=== PATIENT | female | born 1985 | race African-American/Black ===

== ENCOUNTER 2019-01-10 11:40 | Outpatient (CLI) | payer MEDICAID ==
[~2019-01-10] VITALS: Ht 170.2 cm; Wt 89.8 kg
[2019-01-10 12:21] VITALS: BP 124/77; PULSE 96; Ht 170.2 cm; Wt 89.8 kg
[2019-01-10] MEDS ORDERED: PNV11TAB PO (12:23)
--- NOTE | 2019-01-10 15:22 | TRIAGE ---
OB Triage Datetime Report Generated by CPN: 01/10/2019 15:22 Datetime: 01/10/2019 14:12 Stage of : OB Triage Datetime: 01/10/2019 14:10 Labor Evaluation Frequency: 0 Monitor Mode: External Pattern: Normal: <= 5 Contractions in 10 Minutes Resting Tone [place]: Relaxed Heart Rate FHR Baseline Rate: 135 Monitor Mode: External US Variability: Moderate 6-25 bpm Accelerations: 10X10 Decelerations: None Category: Category I Pain Assessment Pain Scale: 3 Pain Presence: Constant Pain Type: Pressure Pain Location: Perineum Pain Goal: 3 Pain Relief Measures: Comfort Measures Datetime: 01/10/2019 12:53 Labor Evaluation Frequency: 0 Monitor Mode: External Pattern: Normal: <= 5 Contractions in 10 Minutes Resting Tone [place]: Relaxed Heart Rate FHR Baseline Rate: 135 Monitor Mode: External US Variability: Moderate 6-25 bpm Accelerations: 10X10 Decelerations: None Category: Category I Pain Assessment Pain Scale: 5 Pain Presence: Constant Pain Type: Pressure Pain Location: Perineum Pain Goal: 3 Pain Relief Measures: Comfort Measures Pain Assessment Comments: ABDOMINAL BINDER GIVEN, STATES HAS HELPED Datetime: 01/10/2019 12:32 Stage of : OB Triage Datetime: 01/10/2019 12:16 Stage of : OB Triage Assessment Type: Triage Maternal Assessment Level of Consciousness: Fully Conscious DTR's/Clonus: DTRs 2+; No Clonus Headache: Denies Blurred Vision: No Respiratory Effort: Unlabored; Regular Rhythm; Equal Expansion Breath Sounds, Left: Clear and Equal Breath Sounds, Right: Clear and Equal Nausea/Vomiting: Denies RUQ Epigastric Pain: Denies Facial Edema: None Temperature Route: Axillary Fall Risk Assessment History of Falling: (0) No Secondary Diagnosis: (0) No Ambulatory Aid: (0) Bedrest/Nurse Assist IV Therapy: (0) No Gait: (0) Normal/Bedrest/Immobile Mental Status: (0) Oriented to Own Ability Fall Score: 0 Fall Risk Score Definition: No Risk: No action required Labor Evaluation Frequency: 0 Monitor Mode: External Pattern: Normal: <= 5 Contractions in 10 Minutes Resting Tone [place]: Relaxed Heart Rate FHR Baseline Rate: 135 Monitor Mode: External US Variability: Moderate 6-25 bpm Accelerations: 10X10 Decelerations: None Pain Assessment Pain Scale: 10 Pain Presence: Constant (Annotations: CONSTANT WHEN WALKING/STANDING) Pain Type: Pressure Pain Location: Back Pain Goal: 3 Pain Relief Measures: Comfort Measures Datetime: 01/10/2019 12:15 EGA: 27.5 Datetime: 01/10/2019 12:14 Time of Arrival: 01/10/2019 11:30 Arrived By: Ambulatory Arrived From: Home Chief Complaint: C/O VAGINAL PRESSURE THIS MORNING, DENIES LEAKING, BLEEDING OR UC'S. FEELS SLIGHTL Y NAUSEAUS Movement: Present Contractions: Denies/Absent Rupture of Membranes: Denies Vaginal Bleeding: None Vaginal Discharge: Denies Recent Sexual Intercouse: Denies Abdominal Trauma: Not Applicable Time Provider Notified: 01/10/2019 12:33 Provider Notified: ashutosh Initial Plan: MONITOR, u/a c_s, bpp
--- NOTE | 2019-01-10 16:15 | PN ---
Triage Information Date/Time 01/10/1911/30/1610 Reason for visit: vaginal pressure on walking and standing Weeks of Gestation 27w5d /Para A1 Diabetes: none Hypertention: none Objective Vital Signs Date Temp Pulse Resp B/P (MAP) Pulse Ox O2 O2 Flow FiO2 Time Delivery Rate 01/10/19 98.6 96 124/77 12:21 (93) Heart Rate: 130's Heart Rate Comments adequate for GA Contractions: None Results/Medications Results 24 hrs Laboratory Tests Test 01/10/19 12:20 Urine Color RED Urine Clarity CLOUDY A Urine pH 7.0 Urine Specific [place] 1.013 Urine Ketones NEGATIVE Urine Nitrite NEGATIVE Urine Bilirubin NEGATIVE Urine Urobilinogen NEGATIVE Urine Leukocyte Esterase NEGATIVE Urine Microscopic RBC 0 Urine Microscopic WBC 2 Urine Squamous Epithelial Cells FEW Urine Amorphous Crystals FEW A Urine Bacteria FEW A Urine Hemoglobin NEGATIVE Urine Glucose NEGATIVE Urine Total Protein NEGATIVE Imaging Results BPP8/8 LOLA 11,7 Disposition: Discharge Assessment/Plan A IUP 27w5d ligament pain P discharge home with instructions not to lft any heavy object or sudden movement rest CHENCHO ARVIZU MD Jan 10, 2019 16:15
== END 2019-01-10 14:20 | disposition home or self-care (01) ==
LOC: OBT 11:40 → L-D 11:42 → OBT 14:20
PROVIDERS: ATTEND Obstetrics & Gynecology
DX: O26.892 Other specified pregnancy related conditions, second trimester (principal); R10.2 Pelvic and perineal pain; M54.9 Dorsalgia, unspecified; Z3A.27 27 weeks gestation of pregnancy
CPT/HCPCS: 76818; 81001; 87086; Z7500; G0463

== ENCOUNTER 2019-02-24 11:42 | Inpatient (IN) | payer MEDICAID ==
[~2019-02-24] VITALS: Ht 170.2 cm; Wt 91.4 kg
[~2019-02-24 11:42] MED LIST: PNV11TAB PO
[2019-02-24 11:49] VITALS: Ht 170.2 cm; Wt 91.4 kg
[2019-02-24] MEDS ORDERED: FER325 PO (11:52)
[2019-02-24 11:57] VITALS: BP 105/68; PULSE 101; RESP 20
[2019-02-24] MEDS ORDERED: ACETAMINOPHEN 325 MG TAB PO ONE (16:30)
--- NOTE | 2019-02-24 17:35 | TRIAGE ---
OB Triage Datetime Report Generated by CPN: 02/24/2019 17:35 Datetime: 02/24/2019 17:21 Comments: Pt to [facility], report Mariella RN Datetime: 02/24/2019 16:22 Comments: Dr. Bobby was informed of pt c/o headache. New order for Tylenol 650 mg Datetime: 02/24/2019 16:21 Comments: Pt c/o headache 4/10 (temporal) will call MD for orders Datetime: 02/24/2019 16:18 Stage of : Labor Temperature Route: Oral Datetime: 02/24/2019 16:12 Comments: [place], juice and water offered to pt Datetime: 02/24/2019 16:00 Labor Evaluation Frequency: X2 Monitor Mode: External Duration (sec)2399: 40-80 Quality: Mild Pattern: Normal: <= 5 Contractions in 10 Minutes Resting Tone [place]: Relaxed Heart Rate FHR Baseline Rate: 130 Monitor Mode: External US FHR Baseline Changes: No Baseline Change Variability: Moderate 6-25 bpm Accelerations: 15X15 Decelerations: None Category: Category I Membrane Status: Intact Datetime: 02/24/2019 15:13 Comments: Lab and u/s at bedside Datetime: 02/24/2019 15:00 Labor Evaluation Frequency: x2 Monitor Mode: External Duration (sec)2399: 60-80 Quality: Mild Pattern: Normal: <= 5 Contractions in 10 Minutes Resting Tone [place]: Relaxed Heart Rate FHR Baseline Rate: 130 Monitor Mode: External US FHR Baseline Changes: No Baseline Change Variability: Moderate 6-25 bpm Accelerations: 15X15 Decelerations: None Category: Category I Datetime: 02/24/2019 14:57 Stage of : OB Triage Datetime: 02/24/2019 14:34 Comments: Dr. Bobby was informed of Dr's Hadadian request to evaluate pt. New order for CBC, Typ e and Screen KB test and placenta u/s Datetime: 02/24/2019 14:00 Labor Evaluation Frequency: X2 Monitor Mode: External Duration (sec)2399: 50-80 Quality: Mild Pattern: Normal: <= 5 Contractions in 10 Minutes Resting Tone [place]: Relaxed Heart Rate FHR Baseline Rate: 135 Monitor Mode: External US FHR Baseline Changes: No Baseline Change Variability: Moderate 6-25 bpm Accelerations: 15X15 Decelerations: None Category: Category I Pain Assessment Pain Scale: 8 Pain Presence: Constant Pain Type: Cramping; Ache Pain Location: Abdomen; Right Hip Pain Goal: 9 Pain Relief Measures: Comfort Measures Datetime: 02/24/2019 13:36 Pain Assessment Pain Scale: 8 Pain Presence: Intermittent Datetime: 02/24/2019 12:54 Comments: u/s at bedside Datetime: 02/24/2019 12:53 Labor Evaluation Frequency: x3 Monitor Mode: External Duration (sec)2399: 40-90 Quality: Mild Pattern: Normal: <= 5 Contractions in 10 Minutes Resting Tone [place]: Relaxed Heart Rate FHR Baseline Rate: 130 Monitor Mode: External US FHR Baseline Changes: No Baseline Change Variability: Moderate 6-25 bpm Accelerations: 15X15 Decelerations: None Category: Category I Datetime: 02/24/2019 12:46 Vaginal Exam Dilatation (cms): 0.0 Effacement (%): 30 Station: -3 Exam By: LH Datetime: 02/24/2019 12:32 Comments: Dr. Rojas was informed of pt's arrival to unit with c/o cramping since this morning, p t slipped last night and felt on her right hip. Pt stated that baby hasn't being moving as usual. New order for VE, BPP and NST Datetime: 02/24/2019 12:23 Comments: Message left on Dr's Hadadian cell phone regarding pt's arrival to unit and to call me ba ck. Datetime: 02/24/2019 12:20 Labor Evaluation Frequency: 2-13 Monitor Mode: External Duration (sec)2399: 50-120 Quality: Mild Pattern: Normal: <= 5 Contractions in 10 Minutes Resting Tone [place]: Relaxed Heart Rate FHR Baseline Rate: 130 Monitor Mode: External US FHR Baseline Changes: No Baseline Change Variability: Minimal - Undetectable to <=5 bpm Accelerations: 15X15 Decelerations: None Category: Category I Comments: Right tilt Pain Assessment Pain Scale: 8 Pain Presence: Intermittent Pain Type: Cramping Pain Location: Abdomen Pain Goal: 9 Pain Relief Measures: Comfort Measures Datetime: 02/24/2019 12:00 Time of Arrival: 02/18/2019 11:43 EGA: 33.2 Arrived By: Ambulatory Arrived From: Home Chief Complaint: Cramping since 0800. Pt stated that she slipped last night and felt on her right h ip. Decrase movement since fall Movement: Decreased Contractions: Regular Time Contractions Began: 02/24/2019 08:00 Rupture of Membranes: Denies Vaginal Bleeding: Normal Show Vaginal Discharge: Denies Recent Sexual Intercouse: Denies Abdominal Trauma: Fall Patient Complaints: Contractions Initial Plan: NST, BPP, VE, KB, CBC Datetime: 02/24/2019 11:56 Stage of : OB Triage Assessment Type: Triage Maternal Assessment Level of Consciousness: Fully Conscious DTR's/Clonus: DTRs 2+; No Clonus Blurred Vision: No Respiratory Effort: Unlabored; Regular Rhythm; Equal Expansion Breath Sounds, Left: Clear and Equal Breath Sounds, Right: Clear and Equal Nausea/Vomiting: Denies RUQ Epigastric Pain: Denies Lower Extremities Edema: None Upper Extremities Edema: None Facial Edema: None Temperature Route: Oral Fall Risk Assessment History of Falling: (0) No Secondary Diagnosis: (0) No Ambulatory Aid: (0) Bedrest/Nurse Assist IV Therapy: (0) No Gait: (0) Normal/Bedrest/Immobile Mental Status: (0) Oriented to Own Ability Fall Score: 0 Fall Risk Score Definition: No Risk: No action required Datetime: 01/10/2019 12:16 Fall Score: 0 Fall Risk Score Definition: No Risk: No action required Datetime: 01/10/2019 12:15 EGA: 27.5
[2019-02-24] MEDS: LACTATED RINGER'S 1,000 ML IV SCH ×2 (18:06→23:07)
--- NOTE | 2019-02-24 18:35 | HP ---
Date/Time of Note Date/Time of Note DATE: 02/24/19 TIME: 18:32 OB - History Hx of Present Free Text/Dictation @34+wks GA s/p Falling and direct trauma to abdomen : 2 Para: 1 Care: Good Care Ultrasounds: Normal mid trimester US Obstetrical Complications: None Medical Complications: None Past Family/Social History * Past Medical, Surgical, Family and Obstetric Histories reviewed from chart. OB Admission Exam Vital Signs Vital Signs Vital Signs Date Temp Pulse Resp B/P (MAP) Pulse Ox O2 O2 Flow FiO2 Time Delivery Rate 02/24/19 97.9 101 20 105/68 Room Air 11:57 (80) Physical Exam Abdomen: WNL Extremities: Normal Cervical Dilatation: None Effacement: 0% Station: Ballotable Membranes: Intact Heart Rate: 140's Accelerations: Accelerations Present Decelerations: No Decelerations Varibility: Moderate Contractions on Admission: None Last 72 hours Lab Results CBC & BMP 02/24/19 15:16 OB Assessment/Plan Reason for admission: observation Other Assessment: PMH denies PSH Denies Plan: Expectant Management Other plan: 24 hr observation Labs will follow up on the patient MAGDALEAN BARNEY M.D. Feb 24, 2019 18:35
[2019-02-25] MEDS: LACTATED RINGER'S 1,000 ML IV SCH ×2 (06:30→16:39)
[2019-02-25] MEDS ORDERED: FERROUS SULFATE (EC) 325 MG TAB PO SCH (09:00)
[2019-02-25] MEDS ORDERED: PRENATAL VITAMIN PO SCH (09:00)
--- NOTE | 2019-02-25 16:51 | QN ---
Documentation Comment patient is doing fine NSt reassuring [place] No CTXS Pelvic deferred --->Discharge with precautions if BPP is 8/8 Questions answered Precautions discussed Follow up with provider MAGDALENA BARNEY M.D. Feb 25, 2019 16:51
--- NOTE | 2019-02-25 16:52 | DS ---
Date/Time of Note Date/Time of Note DATE: 02/25/19 TIME: 16:51 Discharge Summary Admission/Discharge Info Admit Date/Time Feb 24, 2019 at 17:15 Discharge Date/Time 02/25/2019 Discharge Diagnosis Trauma s/p falling Patient Condition: Good Hospital Course uneventful Home Meds Reported Medications Ferrous Sulfate* (Ferrous Sulfate*) 325 Mg Tabec, 325 MG PO DAILY, TAB 02/24/19 [id number] ( 19) 1 Each Tablet, 1 TAB PO DAILY, TAB 01/10/19 Primary Care Provider Care Physician No Primary Pending Labs Laboratory Tests Test 02/25/19 07:20 Lab Scanned Report [facility] [id number] MAGDALENA BARNEY M.D. Feb 25, 2019 16:52
== END 2019-02-25 19:00 | disposition home or self-care (01) | DRG 833 ==
LOC: L-D 11:42 → OBT 11:42 → L-D 17:15 → PP1 02-25 07:00
PROVIDERS: ADMIT Obstetrics & Gynecology; ATTEND Obstetrics & Gynecology
PROC: 4A1HXCZ Monitoring of Products of Conception, Cardiac Rate, External Approach (ICD-10-PCS; principal; 2019-02-24)
DX: O26.893 Other specified pregnancy related conditions, third trimester (principal); Z3A.34 34 weeks gestation of pregnancy; S39.91XA Unspecified injury of abdomen, initial encounter; W19.XXXA Unspecified fall, initial encounter
CPT/HCPCS: 76815; 76816; 76818; 85025; 85460; 86850; 86900; 86901; G0463; J7120

== ENCOUNTER 2019-03-16 16:11 | Outpatient (CLI) | payer MEDICAID ==
[~2019-03-16] VITALS: Ht 170.2 cm; Wt 96.2 kg
[2019-03-16 16:19] VITALS: Ht 170.2 cm; Wt 96.2 kg
[2019-03-16] MEDS ORDERED: CALC600T5 PO (16:21)
[2019-03-16] MEDS ORDERED: FERR134T PO (16:21)
[2019-03-16] MEDS ORDERED: PREN-93 PO (16:21)
[2019-03-16] MEDS ORDERED: OXYTOCIN 30 UNITS/LR 500 ML IV SCH ×2 (18:30)
[2019-03-16] MEDS ORDERED: BUTORPHANOL 2 MG INJ IV PRN (18:30)
[2019-03-16] MEDS ORDERED: OXYTOCIN 30 UNITS/LR 500 ML IV PRN (18:30)
[2019-03-16] MEDS ORDERED: MISOPROSTOL 200 MCG TAB PR PRN (18:30)
[2019-03-16] MEDS ORDERED: AMPICILLIN 2 GM/NS (PMX) 100 ML IV ONE (18:30)
[2019-03-16] MEDS ORDERED: CARBOPROST 250 MCG INJ IM PRN (18:30)
[2019-03-16] MEDS ORDERED: LIDOCAINE 1% (MPF) 30 ML INJ INJ PRN (18:30)
[2019-03-16] MEDS ORDERED: METHYLERGONOVINE 0.2 MG INJ IM PRN (18:30)
[2019-03-16] MEDS: LACTATED RINGER'S 1,000 ML IV SCH (18:54)
[2019-03-16] MEDS ORDERED: AMPICILLIN 1 GM/NS (PMX) 50 ML IV SCH (21:00)
--- NOTE | 2019-03-16 21:39 | HP ---
Date/Time of Note Date/Time of Note DATE: 03/16/19 TIME: 21:34 OB - History Hx of Present Free Text/Dictation Patient is a 33-year-old 5 para 3 at 37 weeks of gestation with estimated date of delivery April 06, 2018 Patient presents with uterine contractions Reports positive movement, denies any vaginal bleeding or leaking fluid GBS status is positive Estimated Due Date: April 06, 2019 : 5 Para: 3 Care: Good Care Obstetrical Complications: None Medical Complications: None Past Family/Social History * Past Medical, Surgical, Family and Obstetric Histories reviewed from chart. OB Admission Exam Physical Exam HEENT: WNL Heart: Rhythm Normal Lungs: Clear, Equal Abdomen: WNL Extremities: Normal Reflexes: Normal Cervical Dilatation: 3cm Effacement: 50% Station: -3 Membranes: Intact Heart Rate: 140's Accelerations: Accelerations Present Decelerations: No Decelerations Varibility: Moderate Contractions on Admission: >10 Minutes Apart Intensity: Mild Last 72 hours Lab Results CBC & BMP 03/16/19 18:30 Liver Function Test 03/16/19 18:30 Alanine Aminotransferase (ALT/SGPT) 27 Albumin 3.8 Alkaline Phosphatase 185 H Aspartate Amino Transf (AST/SGOT) 27 Direct Bilirubin 0.00 Total Protein 7.5 PROCEDURE: US Obstetrical, limited CLINICAL INDICATION: Labor, weakness TECHNIQUE: Multiple real-time images were acquired of the patient's maternal abdomen utilizing a curved array transducer. COMPARISON: 03/05/2019 FINDINGS: There is a single live intrauterine fetus positioned cephalic. The placenta is implanted anteriorly and is grade II. There is no placenta previa or abruptio evident. The heart rate is 161 beats per minute. Measurements: BPD: 9.02 cm, corresponds to a age of 36 weeks 4 days Head circumference: 32.86 cm, corresponds to a age of 37 weeks 2 days Abdominal circumference: 35.84 cm, corresponds to a age of 39 weeks 5 days Femoral length: 7.42 cm, corresponds to a age of 38 weeks 0 days Average age by ultrasound: 37 weeks 6 days plus or minus 2 weeks 5 days Estimated weight: 3558 g plus or minus 534 g. The EFW falls at 92%. IMPRESSION: 1. Single live intrauterine fetus, cephalic presentation, unchanged. The heart rate is 161 bpm. 2. Anterior placenta, grade 2, no previa or abruptio is evident. 3. Estimated age by ultrasound: 37-week 6 days plus or minus 2 weeks 5 days. The estimated weight is 3558 g. The EFW falls of 92%. There has been adequate growth since the previous study. The estimated date of delivery based on today's sonogram is 03/31/2019. Physician Kenna Date Time Electronically viewed and signed by Physician Kenna on 03/16/2019 19:34 RH/ CC: BARTOLOME SANTOS [id number] PROCEDURE: US Obstetrical , limited CLINICAL INDICATION: Biophysical profile for well being, labor, weakness. TECHNIQUE: Multiple real-time images were acquired of the patient's maternal abdomen utilizing a curved array transducer. COMPARISON: 02/25/1929 to FINDINGS: There is a single live intrauterine fetus in a cephalic presentation. The placenta is implanted anteriorly and is grade II. There is no placenta previa or abruptio evident. The amniotic fluid index measures 13.3 cm. The heart rate is 157 beats per minute. Biophysical profile: Tone: 2 breathin Gross body movement: 2 Amniotic fluid: 2 Biophysical profile score: 8/8 IMPRESSION: 1. Single live intrauterine fetus, cephalic presentation, unchanged. The heart rate is 157 bpm. 2. Anterior placenta, grade 2, no previa or abruptio is evident. 3. Amniotic fluid index 13.3 cm 4. Biophysical profile score: 8/8, unchanged. Physician Kenna Date Time Electronically viewed and signed by Physician Kenna on 03/16/2019 19:31 RH/ CC: BARTOLOME SANTOS [phone] OB Assessment/Plan Reason for admission: active labor (Early labor) Plan: Expectant Management Other plan: Admit to labor and delivery for expectant management IV fluid hydration Antibiotics for GBS prophylaxis Copies To: CC: BARTOLOME SANTOS ; MISA LOPEZ MD March 16, 2019 21:39
[2019-03-17] MEDS: LACTATED RINGER'S 1,000 ML IV SCH (01:09)
--- NOTE | 2019-03-17 06:07 | DS ---
Date/Time of Note Date/Time of Note DATE: 03/17/19 TIME: 06:06 Obstetrical Discharge Record Final Diagnosis Final Diagnosis: Term not delivered Other Final Diagnosis Early labor Patient is a 33-year-old 5 para 3 at 37 weeks of gestation with estimated date of delivery April 06, 2019 Patient presented with uterine contractions Reported positive movement, denied any vaginal bleeding or leaking fluid GBS status is positive; patient received IV antibiotics After 24 hours of expectant management cervical exam remained unchanged 2-3 cm/ 50%/ -3 Patient was discharged home with labor precautions and kick count instructions Condition on Discharge Physical Assessment Voiding: Yes Bowel Movement: Yes Breast: Soft, non-tender Fundus: Other (Gravid) Calf Tenderness: No Patient Condition: Good Copies To: CC: BARTOLOME SANTOS BAHAREH MD March 17, 2019 06:07
== END 2019-03-17 06:30 | disposition home or self-care (01) ==
LOC: OBT 16:11 → L-D 16:12 → OBT 16:28 → L-D 16:36 → UNDOADMOB 16:36 → INTOOBSV 16:36 → L-D 17:18
PROVIDERS: ATTEND Obstetrics & Gynecology
DX: O62.9 Abnormality of forces of labor, unspecified (principal); Z3A.37 37 weeks gestation of pregnancy
CPT/HCPCS: 76815; 76818; 80053; 81003; 85025; 85610; 85730; 86592; 86850; 86900; 86901; J0290; J7120; Z7500; G0463

== ENCOUNTER 2019-03-28 19:12 | Inpatient (IN) | payer MEDICAID ==
[~2019-03-28] VITALS: Ht 170.2 cm; Wt 94.0 kg
[~2019-03-28 19:12] MED LIST changes: +CALC600T5 PO; +FERR134T PO; -PNV11TAB PO; +PREN-93 PO
[2019-03-28 19:28] VITALS: BP 121/69; PULSE 99; RESP 18; Ht 170.2 cm; Wt 94.0 kg
[2019-03-28] MEDS ORDERED: LACTATED RINGER'S 1,000 ML IV PRN (20:31)
[2019-03-28] MEDS ORDERED: AMPICILLIN 2 GM/NS (PMX) 100 ML ONE (20:39)
[2019-03-28] MEDS: LACTATED RINGER'S 1,000 ML IV SCH (20:46)
[2019-03-28] MEDS ORDERED: CARBOPROST 250 MCG INJ IM PRN (21:00)
[2019-03-28] MEDS ORDERED: IBUPROFEN 600 MG TAB PO PRN (21:00)
[2019-03-28] MEDS ORDERED: LIDOCAINE 1% (MPF) 30 ML INJ INJ PRN (21:00)
[2019-03-28] MEDS ORDERED: METHYLERGONOVINE 0.2 MG INJ IM PRN (21:00)
[2019-03-28] MEDS ORDERED: MISOPROSTOL 200 MCG TAB PR PRN (21:00)
[2019-03-28] MEDS ORDERED: AMPICILLIN 2 GM/NS (PMX) 100 ML IV ONE (21:00)
[2019-03-28] MEDS ORDERED: BUTORPHANOL 2 MG INJ IV PRN ×2 (21:00)
[2019-03-28] MEDS ORDERED: OXYTOCIN 30 UNITS/LR 500 ML IV SCH ×2 (21:00)
[2019-03-28] MEDS ORDERED: OXYTOCIN 30 UNITS/LR 500 ML IV PRN (21:00)
[2019-03-29] MEDS: AMPICILLIN 1 GM/NS (PMX) 50 ML IV SCH ×6 (01:38→22:00)
[2019-03-29] MEDS: LACTATED RINGER'S 1,000 ML IV SCH ×3 (03:13→13:13)
--- NOTE | 2019-03-29 07:53 | PREAC ---
Date/Time of Note Date/Time of Note DATE: 03/29/19 TIME: 07:52 Anesthesia Eval and Record Evaluation Time Pre-Procedure Interview DATE: 03/29/19 TIME: 07:52 Age 33 Sex female NPO: 8 hrs Preoperative diagnosis in labor Planned procedure Labor epidural Past Medical History Past Medical History: None Surgery & Anesthesia Issues No known issue Meds Anticoagulation: No Beta Velia within 24 hr: No Reason Beta Velia not given: Pt. not on B-Velia Reported Medications Calcium Carbonate (CALCIUM) 600 Mg Tablet, 600 MG PO, TAB 03/16/19 Ferrous Sulfate (Iron) 134 Mg Tablet, 134 MG PO, TAB 03/16/19 Vit No.124/Iron/FA ( Vitamin Tablet) 1 Each Tablet, 1 EACH PO, TAB 03/16/19 Current Medications Lactated Ringer's 1,000 ml @ 125 mls/hr Q8H IV Last administered on 03/29/19at 03:13; Admin Dose 125 MLS/HR; Start 03/28/19 at 20:31 Ampicillin 50 ml @ 100 mls/hr Q4H IV Last administered on 03/29/19at 05:44; Admin Dose 100 MLS/HR; Start 03/29/19 at 01:00 Butorphanol Tartrate (Stadol) 1 mg Q2H PRN IV .PAIN SCALE 1-5; Start 03/28/19 at 21:00 Butorphanol Tartrate (Stadol) 2 mg Q2H PRN IV .PAIN SCALE 6-10; Start 03/28/19 at 21:00 Lidocaine (Xylocaine 1% (Mpf)) 30 ml ONCE PRN INJ .EPISIOTOMY; Start 03/28/19 at 21:00 Oxytocin/Lactated Ringer's 500 ml @ 500 mls/hr ONCE POST IV ; Start 03/28/19 at 21:00 Oxytocin/Lactated Ringer's 500 ml @ 125 mls/hr POST IV ; Start 03/28/19 at 21:00 Ibuprofen (Motrin) 600 mg ONCE PRN PO .PAIN 1-5; Start 03/28/19 at 21:00 Lactated Ringer's 1,000 ml @ 2,000 mls/hr Q30M PRN IV .ANESTHESIA; Start 03/28/19 at 20:31 Oxytocin/Lactated Ringer's 500 ml @ 0 mls/hr ONCE PRN IV .VAGINAL BLEEDING; Start 03/28/19 at 21:00 Methylergonovine Maleate (Methergine) 0.2 mg ONCE PRN IM .VAGINAL BLEEDING; Start 03/28/19 at 21:00 Carboprost Tromethamine (Hemabate) 250 mcg ONCE PRN IM .VAGINAL BLEEDING; Start 03/28/19 at 21:00 Misoprostol (Cytotec) 1,000 mcg ONCE PRN SD .VAGINAL BLEEDING; Start 03/28/19 at 21:00 Meds reviewed: Yes Allergies Coded Allergies: No Known Allergy (Unverified , 03/16/19) Allergies Reviewed: Yes Labs/Studies Labs Reviewed: Reviewed by anesthesiologist Result Diagram: 03/28/191999 Laboratory Tests 03/28/19 20:00 Blood Bank Test 03/28/19 20:00 Antibody Screen NEGATIVE Blood Type O POSITIVE Rh Immune Globulin Candidate NO test: Positive Pre-procedure Exam Last vitals Vital Signs Date Temp Pulse Resp B/P (MAP) Pulse Ox O2 O2 Flow FiO2 Time Delivery Rate 03/28/19 97.6 99 18 121/69 Room Air 19:28 (86) Airway: Adequate mouth opening Mallampati: Mallampati II Teeth: Normal Lung: Normal Heart: Normal ASA Physical Status ASA physical status: 2 Emergency: None Planned Anesthetic Neuraxial: Epidural Pre-operative Attestations Prior to commencing anesthesia and surgery, the patient was re-evaluated, there was verification of: *The patient's identity *The results of appropriate recent lab work and preoperative vital signs *The above evaluation not changing prior to induction *Anesthetic plan, risk benefits, alternative and complications discussed with patient/family; questions answered; patient/family understands, accepts and wishes to proceed. WINSTON ELY MD March 29, 2019 07:53
[2019-03-29] MEDS ORDERED: FENTAnyl 2MCG/ML-ROPIV 0.2% 100 ML ONE (07:54)
[2019-03-29] MEDS ORDERED: EPHEDrine 25 MG/5 ML SYG IV PRN (08:30)
[2019-03-29] MEDS ORDERED: FENTAnyl 2MCG/ML-ROPIV 0.2% 100 ML BAG EPI SCH (08:30)
[2019-03-29] MEDS ORDERED: DIPHENHYDRAMINE 50 MG INJ IV PRN (08:30)
[2019-03-29] MEDS ORDERED: ONDANSETRON 4 MG INJ IV PRN ×2 (08:30→16:30)
[2019-03-29] MEDS ORDERED: NALOXONE (0.4 MG/ML) INJ IV PRN (08:30)
--- NOTE | 2019-03-29 16:18 | HP ---
Date/Time of Note Date/Time of Note DATE: 03/29/19 TIME: 16:16 OB - History Hx of Present Free Text/Dictation 33-year-old 5 para 3 at 38 weeks and 6 days of gestation with estimated date of delivery April 06, 2019 She presented in active labor with regular contractions Patient reports positive movement, denies vaginal bleeding or leaking fluid GBS status is positive Estimated Due Date: April 06, 2019 : 5 Para: 3 Care: Good Care Past Family/Social History * Past Medical, Surgical, Family and Obstetric Histories reviewed from chart. OB Admission Exam Vital Signs Vital Signs Vital Signs Date Temp Pulse Resp B/P (MAP) Pulse Ox O2 O2 Flow FiO2 Time Delivery Rate 03/28/19 97.6 99 18 121/69 Room Air 19:28 (86) Physical Exam HEENT: WNL Heart: Rhythm Normal Lungs: Clear, Equal Abdomen: WNL Extremities: Normal Reflexes: Normal Cervical Dilatation: 5cm Effacement: 50% Station: -3 Membranes: Intact Heart Rate: 140's Accelerations: Accelerations Present Decelerations: No Decelerations Varibility: Moderate Contractions on Admission: < 5 Minutes Apart Intensity: Moderate Last 72 hours Lab Results CBC & BMP 03/28/19 20:00 OB Assessment/Plan Reason for admission: active labor Plan: Expectant Management Other plan: Admit to labor and delivery Antibiotics for GBS prophylaxis Pain meds as needed Copies To: CC: BARTOLOME SANTOS BAHAREH MD March 29, 2019 16:17
[2019-03-29] MEDS ORDERED: OXYTOCIN 30 UNITS/LR 500 ML IV SCH (16:27)
--- NOTE | 2019-03-29 16:27 | LDN ---
Date/Time of Note Date/Time of Note DATE: 03/29/19 TIME: 16:25 Delivery Summary Weeks of Gestation Term gestation Placenta Delivered: Spontaneously Meconium: none Episiotomy: Yes Laceration repair: Medial episiotomy repaired with 2-0 Vicryl suture Anesthesia type: Epidural Estimated blood loss: 250 Sponge & Needle done & correct: Yes All needle counts correct: Yes Any foreign bodies felt in the: No Delivery Information Sex Infant Sex: female Apgars 1 Minute: 8 5 Minute: 9 Suctioning Nose & mouth suctioned at doris: Yes Delee suction performed: No Umbilical Cord Umbilical cord with: 3 Vessels Cord presentations: no nuchal cord Cord Blood was obtained: Yes Mother & Baby Disposition Disposition Baby's weight 3950 g/ 8 pounds 11 ounces Copies To: CC: BARTOLOME SANTOS BAHAREH MD March 29, 2019 16:27
[2019-03-29] MEDS ORDERED: CARBOPROST 250 MCG INJ IM PRN (16:30)
[2019-03-29] MEDS ORDERED: BENZOCAINE 20% 56 ML SPRAY TOP PRN (16:30)
[2019-03-29] MEDS ORDERED: OXYTOCIN 30 UNITS/LR 500 ML IV PRN (16:30)
[2019-03-29] MEDS ORDERED: METHYLERGONOVINE 0.2 MG INJ IM PRN (16:30)
[2019-03-29] MEDS ORDERED: LANOLIN HPA 1 PKT TOP PRN (16:30)
[2019-03-29] MEDS ORDERED: ACETAMINOPHEN 325 MG TAB PO PRN ×2 (16:30)
[2019-03-29] MEDS ORDERED: MAGNESIUM HYDROXIDE 30ML CUP PO PRN (16:30)
[2019-03-29] MEDS ORDERED: MISOPROSTOL 200 MCG TAB PR PRN (16:30)
[2019-03-29] MEDS ORDERED: WITCH HAZEL/GLYCERIN PAD PR PRN (16:30)
[2019-03-29] MEDS ORDERED: DIBUCAINE 1% 30 GM OINT TOP PRN (16:30)
[2019-03-29 17:30] VITALS: BP 136/78; PULSE 84; RESP 18
[2019-03-29] MEDS: LACTATED RINGER'S 1,000 ML IV* SCH (19:00)
--- NOTE | 2019-03-29 19:18 | PAC ---
Date/Time of Note Date/Time of Note DATE: 03/29/19 TIME: 19:17 Post-Anesthesia Notes Post-Anesthesia Note Last documented vital signs Vital Signs Date Temp Pulse Resp B/P (MAP) Pulse Ox O2 O2 Flow FiO2 Time Delivery Rate 03/29/19 98.3 84 18 136/78 Room Air 17:30 (97) Activity: WNL Respiratory function: WNL Cardiovascular function: WNL Mental status: Baseline Pain reasonably controlled: Yes Hydration appropriate: Yes Nausea/Vomiting absent: Yes WINSTON ELY MD March 29, 2019 19:18
[2019-03-29 19:50] VITALS: BP 129/62; PULSE 80; RESP 19
[2019-03-30] MEDS: LACTATED RINGER'S 1,000 ML IV* SCH ×3 (00:27→16:27)
[2019-03-30] MEDS: AMPICILLIN 1 GM/NS (PMX) 50 ML IV SCH ×3 (01:00→09:00)
[2019-03-30 04:00] VITALS: BP 116/58; PULSE 66; RESP 19
[2019-03-30] MEDS: IBUPROFEN 600 MG TAB PO PRN ×3 (05:39→19:09)
[2019-03-30 08:00] VITALS: BP 121/88; PULSE 67; RESP 17
[2019-03-30 12:20] VITALS: BP 104/65; PULSE 77; RESP 17
--- NOTE | 2019-03-30 12:51 | QN ---
Documentation Comment PPD#1 is stable afebrile tolerates diet No VB +BM +voids VS stable Gen NAD Abd soft NT ND Genitalia No blood at perineum --->Discharge plan tomorrow MAGDALENA BARNEY M.D. March 30, 2019 12:51
[2019-03-30 16:00] VITALS: BP 137/70; PULSE 97; RESP 19
[2019-03-30 19:40] VITALS: BP 113/69; PULSE 68; RESP 18
[2019-03-30] MEDS: SENNA/DOCUSATE NA (8.6MG/50MG) TAB PO PRN (21:46)
[2019-03-31 04:35] VITALS: BP 111/60; PULSE 66; RESP 18
[2019-03-31] MEDS: LACTATED RINGER'S 1,000 ML IV* SCH (07:54)
[2019-03-31] MEDS: IBUPROFEN 600 MG TAB PO PRN (08:59)
[2019-03-31] MEDS: SENNA/DOCUSATE NA (8.6MG/50MG) TAB PO PRN (08:59)
[2019-03-31 09:00] VITALS: BP 110/71; PULSE 61; RESP 16
--- NOTE | 2019-03-31 10:25 | DS ---
Date/Time of Note Date/Time of Note DATE: 03/31/19 TIME: 10:22 Obstetrical Discharge Record Final Diagnosis Final Diagnosis: Term delivered Other Final Diagnosis day #2 Status post Patient stable and afebrile Vital signs stable Hematology - 72 Hrs Test 03/28/19 20:00 03/30/19 07:10 Hematocrit 37.0 % (37.0-47.0) 32.3 % (37.0-47.0) L Hemoglobin 12.7 g/dl (12.0-16.0) 10.9 g/dl (12.0-16.0) L Mean Corpuscular 30.2 pg (29.0-33.0) 29.9 pg (29.0-33.0) Hemoglobin Mean Corpuscular 34.3 g/dl (32.0-37.0) 33.7 g/dl (32.0-37.0) Hemoglobin Concent Mean Corpuscular Volume 87.9 fl (82.0-101.0) 88.5 fl (82.0-101.0) Mean Platelet Volume 12.2 fl (7.4-10.4) H 12.7 fl (7.4-10.4) H Platelet Count 171 10^3/UL (140-415) 140 10^3/UL (140-415) Red Blood Count 4.21 10^6/ul (4.20-5.40) 3.65 10^6/ul (4.20-5.40) L Red Cell Distribution 14.5 % (11.5-14.5) 14.5 % (11.5-14.5) Width White Blood Count 6.9 10^3/ul (4.8-10.8) 9.5 10^3/ul (4.8-10.8) # Abdomen soft, fundus firm Perineum intact Extremities nontender Assessment and plan Patient stable and doing well Plan to discharge home Patient instructed to follow-up with her own OSD CLERK in 2 and 6 weeks Condition on Discharge Physical Assessment Last Vitals: VS - Last 72 Hours, by Label Date Temp Pulse Resp B/P (MAP) Pulse Ox O2 O2 Flow FiO2 Time Delivery Rate 03/31/19 98.8 61 16 110/71 09:00 (84) 03/31/19 98.4 66 18 111/60 Room Air 04:35 (77) 03/30/19 98.1 68 18 113/69 Room Air 19:40 (84) 03/30/19 98.7 97 19 137/70 Room Air 16:00 (92) 03/30/19 98.2 77 17 104/65 Room Air 12:20 (78) 03/30/19 98.1 67 17 121/88 Room Air 08:00 (99) 03/30/19 98.2 66 19 116/58 Room Air 04:00 (77) 03/29/19 98.4 80 19 129/62 Room Air 19:50 (84) 03/29/19 98.3 84 18 136/78 Room Air 17:30 (97) 03/28/19 97.6 99 18 121/69 Room Air 19:28 (86) Voiding: Yes Bowel Movement: Yes Breast: Soft, non-tender Fundus: Firm Calf Tenderness: No Patient Condition: Good Copies To: CC: BARTOLOME SANTOS ; MISA LOPEZ MD March 31, 2019 10:24
--- NOTE | 2019-04-01 17:13 | DELSUM ---
Delivery Summary A-C Datetime Report Generated by CPN: 04/01/2019 17:13 DELIVERY PERSONNEL Extractor Operator: Haley, Wenbing MATERNAL INFORMATION Delivery Anesthesia: Epidural Medications in Delivery: pitocin Delivery QBL (ml): 250 Placenta Cultured: No Maternal Complications: None LABOR SUMMARY EDC: 04/06/2019 00:00 No. Babies in Womb: 1 Attempted: No Labor Anesthesia: Epidural LABOR INFORMATION Reason for Induction: Not Applicable Onset of Labor: 03/28/2019 18:00 Oxytocin: N/A Group B Beta Strep: Positive Antibiotics # of Doses: 5 Antibiotics Time of Last Dose: 03/29/2019 13:36 Steroids Given: None Reason Steroids Not Administered: Not Applicable MEMBRANES Membranes Rupture Method: Artificial Rupture of Membranes: 03/29/2019 13:00 Length of Rupture (hr): 2.85 Amniotic Fluid Color: Clear Amniotic Fluid Amount: Moderate Amniotic Fluid Odor: None STAGES OF LABOR Stage 3 hr: 0 Stage 3 min: 3 Total Time in Labor hr: 21 Total Time in Labor min: 54 VAGINAL DELIVERY Episiotomy: Median Laceration Extension: N/A Laceration Type: None Laceration Repair: Not Applicable Initial Vag Sponge Count: 10 Final Vag Sponge Count: 10 Initial Vag Sharps Count: 1 Final Vag Sharps Count: 3 Sponge Count Correct: Yes; Vaginal Sweep Performed Sharps Count Correct: Yes Count Comment: 2sharps added BABY A INFORMATION Delivery Date/Time: 03/29/2019 15:51 Method of Delivery: Vaginal Born in Route : No : N/A Forceps: N/A Vacuum Extraction: N/A Shoulder Dystocia : No SHOULDER DYSTOCIA BABY A Delivery Date/Time: 03/29/2019 15:51 PRESENTATION/POSITION BABY A Presentation: Cephalic Cephalic Presentation: Vertex Vertex Position: Left Occipital Anterior Breech Presentation: N/A PLACENTA INFORMATION BABY A Placenta Delivery Time : 03/29/2019 15:54 Placenta Method of Delivery: Spontaneous Placenta Status: Delivered SCORES BABY A Heart Rate 1 min: >100 bpm Resp Effort 1 min: Good Cry Reflex Irritability 1 min: Cough/Sneeze/Pulls Away Muscle Tone 1 min: Active Motion Color 1 min: Blue/Pale Resuscitation Effort 1 min: Tactile Stimulation SCORE 1 MIN: 8 Heart Rate 5 min: >100 bpm Resp Effort 5 min: Good Cry Reflex Irritability 5 min: Cough/Sneeze/Pulls Away Muscle Tone 5 min: Active Motion Color 5 min: Body Formoso, Extremit Blue SCORE 5 MIN: 9 INFORMATION BABY A Gestational Age at Delivery: 38.6 Gestational Status: Early Term- 37- 38.6 Weeks Outcome : Liveborn Condition : Stable Infant Sex: Female IDENTIFICATION/MEDS BABY A ID Band Number: [id number] ID Band Location: Right Leg; Left Arm Sensor Applied: Yes Sensor Number: [id number] Sensor Location : Cord Clamp WEIGHT/LENGTH BABY A Birthweight (gm): 3950 Infant Weight (lb): 8 Infant Weight (oz): 11 Length (in): 20.00 Length (cm): 50.80 CORD INFORMATION BABY A No. Cord Vessels: 3 Nuchal Cord : N/A Cord Blood Taken: Yes Suction: Mouth; Nose ASSESSMENT BABY A Complications: None Physical Findings at Delivery: Within Normal Limits Infant Respirations: Appears Normal Android Programmer/ALS Called : No Infant Care By: RT/MAXWELL Transferred To: Remains with Mother
== END 2019-03-31 16:00 | disposition home or self-care (01) | DRG 807 ==
LOC: OBT 19:12 → L-D 19:13 → OBT 19:30 → L-D 19:30 → PP1 03-29 17:21
PROVIDERS: ADMIT Obstetrics & Gynecology; ATTEND Obstetrics & Gynecology
PROC: 10E0XZZ Delivery of Products of Conception, External Approach (ICD-10-PCS; principal; 2019-03-29)
PROC: 0W8NXZZ Division of Female Perineum, External Approach (ICD-10-PCS; 2019-03-29)
DX: O99.824 Streptococcus B carrier state complicating childbirth (principal); Z37.0 Single live birth; Z3A.38 38 weeks gestation of pregnancy
CPT/HCPCS: 62322; 85025; 85610; 85730; 86592; 86762; 86850; 86900; 86901; 87340; 99464; G0463; J0290; J2590; J3010; J7120